=== PATIENT | male | born 1960 | race American Indian/Alaskan Native ===

== ENCOUNTER 2019-11-03 10:50 | Emergency (ER) | payer SELFPAY ==
[2019-11-03 11:23] VITALS: BP 139/77
--- NOTE | 2019-11-03 11:25 | Event Note ---
ED Screening Note ED Screening Note: in the attic fell through the ceiling fell 10 ft c/o right forearm/wrist, right rib, and lower back pain denies hitting his head denies LOC This initial assessment/diagnostic orders/clinical plan/treatment(s) is/are subject to change based on patients health status, clinical progression and re-assessment by fellow clinical providers in the ED. Further treatment and workup at subsequent clinical providers discretion. Patient/guardian urged not to elope from the ED as their condition may be serious if not clinically assessed and managed. Initial orders include: XR forearm, XR right rib, XR L spine
[2019-11-03] MEDS ORDERED: TETANUS,DIPH,PERTUSS(ACELL) VACCINE 0.5 ML SYRINGE IM ONE (11:26)
--- NOTE | 2019-11-03 12:16 | XRay Report ---
RIGHT FOREARM 2 VIEW(S) INDICATION / CLINICAL INFORMATION: obvious swelling, and pain COMPARISON: None available. FINDINGS: BONES / JOINT(S): No fracture or malalignment of the radius or ulna. SOFT TISSUES: Ovoid calcification in the soft tissues overlying the dorsal aspect of the distal radiu s shaft is noted. No embedded radiopaque foreign body or soft tissue gas. Signer Name: Tavon Hodge MD Signed: 11/03/2019 12:11 PM Workstation Name: [id number]
--- NOTE | 2019-11-03 12:17 | XRay Report ---
RIGHT RIBS 4 VIEWS INDICATION / CLINICAL INFORMATION: fall from attic, right rib pain. COMPARISON: None available. FINDINGS: No appreciable rib fracture or other significant abnormality. Accompanying chest radiograph shows no pneumothorax, pleural fluid or obvious pulmonary contusion. Signer Name: Chi Morris MD Signed: 11/03/2019 12:12 PM Workstation Name: [id number]
--- NOTE | 2019-11-03 12:19 | XRay Report ---
LUMBAR SPINE 3 VIEWS INDICATION / CLINICAL INFORMATION: fall from attic, back pain. COMPARISON: None available. FINDINGS: Mild degenerative changes, with slight disc space narrowing at L3-4. There is also disc space narrowi ng at T11-12, possibly with very slight compression of the superior endplate of T12, but hypertrophic spurring at this level suggests this is old. No fracture, subluxation or other acute abnormality. Signer Name: Chi Morris MD Signed: 11/03/2019 12:14 PM Workstation Name: [email or web address]
--- NOTE | 2019-11-03 14:29 | Emergency Department Report ---
ED Fall HPI - General Chief Complaint: Fall Stated Complaint: FALL, RIGHT ARM PAIN Time Seen by Provider: 11/03/19 11:23 Source: patient Mode of arrival: Ambulatory - History of Present Illness Initial Comments: 59-year-old F [place] male was working in the ceiling where he lost his balance falling through the ceiling hurting his arm and back on the way down. He reports having pain to his right arm which worse with range of motion and palpation also has a little skin abrasion as well. No loss of consciousness. No loss of bowel or bladder no saddle paresthesia. No hemoptysis no hematemesis no hematochezia. Complaint: fall -: Sudden Fall From: from height (distance) Fall Witnessed: no Place Fall Occurred: home Loss of Consciousness: none Prolonged Down Time?: no Symptoms Prior to Fall: none Location - Extremities: Right: Arm, Forearm Severity: mild Quality: dull Associated Symptoms: denies: neck pain, numbness, hematuria, lightheaded, vertigo, confusion - Related Data Previous Rx's Medication Instructions Recorded Last Taken Type Ketorolac [Toradol] 10 mg PO Q8HR PRN #10 tablet 11/03/19 Unknown Rx Allergies Allergy/AdvReac Type Severity Reaction Status Date / Time No Known Allergies Allergy Verified 11/03/19 11:20 ED Review of Systems ROS: Stated complaint: FALL, RIGHT ARM PAIN Other details as noted in HPI Comment: All other systems reviewed and negative ED Past Medical Hx - Past Medical History Previous Medical History?: No - Surgical History Past Surgical History?: No - Medications Home Medications: Home Medications Medication Instructions Recorded Confirmed Last Taken Type Ketorolac [Toradol] 10 mg PO Q8HR PRN #10 tablet 11/03/19 Unknown Rx ED Physical Exam - General Limitations: No Limitations General appearance: alert, in no apparent distress - Head Head exam: Present: atraumatic, normocephalic - Eye Eye exam: Present: normal appearance - ENT ENT exam: Present: mucous membranes moist - Neck Neck exam: Present: normal inspection - Respiratory Respiratory exam: Present: normal lung sounds bilaterally. Absent: respiratory distress - Cardiovascular Cardiovascular Exam: Present: regular rate, normal rhythm. Absent: systolic murmur, diastolic murmur, rubs, gallop - GI/Abdominal GI/Abdominal exam: Present: soft, normal bowel sounds - Rectal Rectal exam: Present: deferred - Extremities Exam Extremities exam: Present: normal inspection, tenderness (To the forearm and upper humerus with palpation. No bruising no ecchymosis. Superficial skin tear to the anterior aspect of the lower third of the forearm. 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 Absent: CVA tenderness (R), CVA tenderness (L) - Neurological Exam Neurological exam: Present: alert, oriented X3, CN II-XII intact - Psychiatric Psychiatric exam: Present: normal affect, normal mood - Skin Skin exam: Present: warm, dry, intact, normal color. Absent: rash ED Course Vital Signs 11/03/19 11:16 Temperature 98.4 F Pulse Rate 85 Respiratory 18 Rate Blood Pressure 139/77 O2 Sat by Pulse 98 Oximetry ED Medical Decision Making - Radiology Data Radiology results: report reviewed [address] [address] XRay Report Signed Patient: XAVI WALDRON MR#: [id number] 128 : 1960 Acct:[id number] Age/Sex: 59 / M ADM Date: 11/03/19 Loc: ED Attending Dr: Ordering Physician: ED MD EFRAIN Date of Service: 11/03/19 Procedure(s): XR forearm RT Accession Number(s): [id number] cc: ED MD EFRAIN Fluoro Time In Minutes: RIGHT FOREARM 2 VIEW(S) INDICATION / CLINICAL INFORMATION: obvious swelling, and pain COMPARISON: None available. FINDINGS: BONES / JOINT(S): No fracture or malalignment of the radius or ulna. SOFT TISSUES: Ovoid calcification in the soft tissues overlying the dorsal aspect of the distal radius shaft is noted. No embedded radiopaque foreign body or soft tissue gas. Signer Name: Tavon Hodge MD Signed: 11/03/2019 12:11 PM Workstation Name: [id number] Transcribed By: DMB Dictated By: Tavon Hodge MD Electronically Authenticated By: Tavon Hodge MD Signed Date/Time: 11/03/19 1211 DD/ 1210 TD/TT: [address] [address] XRay Report Signed Patient: XAVI WALDRON MR#: [id number] 128 : 1960 Acct:[id number] Age/Sex: 59 / M ADM Date: 11/03/19 Loc: ED Attending Dr: Ordering Physician: CED FERRO Date of Service: 11/03/19 Procedure(s): XR spine lumbosacral 2-3V Accession Number(s): [id number] cc: CED FERRO Fluoro Time In Minutes: LUMBAR SPINE 3 VIEWS INDICATION / CLINICAL INFORMATION: fall from attic, back pain. COMPARISON: None available. FINDINGS: Mild degenerative changes, with slight disc space narrowing at L3-4. There is also disc space narrowing at T11-12, possibly with very slight compression of the superior endplate of T12, but hypertrophic spurring at this level suggests this is old. No fracture, subluxation or other acute abnormality. Signer Name: Chi Morris MD Signed: 11/03/2019 12:14 PM Workstation Name: [id number] Transcribed By: TM Dictated By: Chi Morris MD Electronically Authenticated By: Chi Morris MD Signed Date/Time: 11/03/19 1214 DD/ 1212 TD/TT: [facility] [address] [place] [address] XRay Report Signed Patient: XAVI WALDRON MR#: [id number] 128 : 1960 Acct:[id number] Age/Sex: 59 / M ADM Date: 11/03/19 Loc: ED Attending Dr: Ordering Physician: CED FERRO Date of Service: 11/03/19 Procedure(s): XR ribs UNI w PA Chest 3+V RT Accession Number(s): [id number] cc: CED FERRO Fluoro Time In Minutes: RIGHT RIBS 4 VIEWS INDICATION / CLINICAL INFORMATION: fall from attic, right rib pain. COMPARISON: None available. FINDINGS: No appreciable rib fracture or other significant abnormality. Accompanying chest radiograph shows no pneumothorax, pleural fluid or obvious pulmonary contusion. Signer Name: Chi Morris MD Signed: 11/03/2019 12:12 PM Workstation Name: [id number] Transcribed By: TM Dictated By: Chi Morris MD Electronically Authenticated By: Chi Morris MD Signed Date/Time: 11/03/19 1212 DD/ 1209 TD/TT: Critical care attestation.: If time is entered above; I have spent that time in minutes in the direct care of this critically ill patient, excluding procedure time. ED Disposition Clinical Impression: Arm contusion, Bone cyst, Skin abrasion, Lumbago Disposition: TO HOME OR SELFCARE Is pt being admited?: No Does the pt Need Aspirin: No Condition: Stable Instructions: Fall Prevention (ED), Abrasion (ED), Contusion in Adults (ED) Prescriptions: Ketorolac [Toradol] 10 mg PO Q8HR PRN #10 tablet PRN Reason: Pain Referrals: PRIMARY CARE, [Primary Care Provider] - 3-5 Days KRISTA KERNS MD [Staff Physician] - 3-5 Days
--- NOTE | 2019-11-03 15:11 | Cat Scan Report ---
CT LUMBAR SPINE WITHOUT CONTRAST INDICATION: low back s/p fall from attic. TECHNIQUE: Axial CT images of the spine were obtained. Sagittal and coronal reformatted images were produced. Al l CT scans at this location are performed using CT dose reduction for ALARA by means of automated exp osure control. COMPARISON: None available. FINDINGS: ACUTE FRACTURE(S) OR SUBLUXATION: None. SPINAL DEGENERATIVE CHANGES: There is mild to moderate bilateral facet DJD from L4-5 and L5-S1. There is no appreciable significant disc herniation or spinal canal stenosis. PARASPINAL SOFT TISSUES: No soft tissue swelling or other acute abnormalities. ADDITIONAL FINDINGS: No significant additional findings. IMPRESSION: 1. No acute fracture or subluxation in the spine in neutral position. Signer Name: Taras Knight MD Signed: 11/03/2019 3:07 PM Workstation Name: [id number]
== END 2019-11-03 15:24 | disposition home or self-care (01) ==
LOC: ED 10:50
DX: S50.11XA Contusion of right forearm, initial encounter (principal); T14.8XXA Other injury of unspecified body region, initial encounter; M85.60 Other cyst of bone, unspecified site; M54.5 Low back pain; Z79.899 Other long term (current) drug therapy; W17.89XA Other fall from one level to another, initial encounter; Y93.89 Activity, other specified; Y92.009 Unspecified place in unspecified non-institutional (private) residence as the place of occurrence of the external cause; Y99.8 Other external cause status
CPT/HCPCS: 72100; 72131